=== PATIENT | female | born 1945 | race African-American/Black ===

== ENCOUNTER → 2018-01-27 | Outpatient (CLI) | payer MEDICARE ==
[~2018-01-27] MED LIST: CITRATED CAFFEINE (IV) 60 MG/3 ML VIAL ONE; REGADENOSON INJ 0.4 MG/5 ML SYR ONE
--- NOTE | 2018-01-27 11:43 | RADRPT ---
EXAM DATE: 01/27/2018 11:27 AM EDT AGE/SEX: 72 years / Female INDICATIONS:Abnormal EKG. . CLINICAL DATA: This is the patient's initial encounter. Patient reports that signs and symptoms have been present for 1 day and indicates a pain score of 0/10. MEDICAL/SURGICAL HISTORY: Diabetes mellitus type II. Tubal ligation. COMPARISON: No prior [facility] exams available for comparison. DOSE: 8.7 mCi Tc 99m Myoview at rest 27.2 mCi [id number]-Iopccts at stress 0.4 mg Lexiscan STRESS SYMPTOMS: None. MEDICATION: 60 mg caffeine IV EJECTION FRACTION: > 70 % TECHNIQUE: The patient underwent pharmacologic stress with infusion of prescribed dose. Continuous ECG tracing was monitored during stress. Gated SPECT imaging was performed after stress and conventi onal SPECT imaging was performed at rest. The examination was performed on a SPECT/CT scanner, both attenuation and non-corrected datasets were reviewed. FINDINGS: Distribution: The maximum perfused segment at stress is in the anterolateral wall. Perfusion Study: No fixed or significant reversible perfusion defect is identified. Gated Study: There are intact wall motion and wall thickening without hypokinetic or dyskinetic segm ents. The ejection fraction is calculated at > 70%. RISK CATEGORY: Low (<1% Annual Motality Rate) CONCLUSION: 1. No significant perfusion abnormality is identified. 2. Normal left ventricular wall motion and ejection fraction. Electronically signed by: Micky Loja MD 01/27/2018 11:42 AM EDT
== END ==
LOC: HRAD 08:36
PROVIDERS: ATTEND Internal Medicine Cardiovascular Disease
DX: R94.31 Abnormal electrocardiogram [ECG] [EKG] (principal)
CPT/HCPCS: 78452; 93017; A9502; J0706; J2785